=== PATIENT | male | born 1955 | race Caucasian/White ===

== ENCOUNTER 2019-05-19 09:10 | Emergency (ER) | payer BC ==
[2019-05-19] MEDS: Famotidine 20 MG/2 ML SDV IVPUSH ONE (09:41)
[2019-05-19] MEDS: Sodium Chloride 0.9% 10 ML Syringe FLUSH PRN (09:42)
[2019-05-19 10:00] LABS: CHLORIDE,CL 100 mmol/L (98-107); SODIUM,NA 136 mmol/L (136-145)
--- NOTE | 2019-05-19 10:25 | EDM.PDOC ---
ED HPI GENERAL MEDICAL PROBLEM - General Chief Complaint: General Stated Complaint: SOB, Urinary Frequency Time Seen by Provider: 05/19/19 09:10 Source of Information: Reports: Patient, Old Records ([facility] chart/EMR), Other ([facility] EMR; [facility] EMR previously reviewed on 01/17/14.) History Limitations: Reports: No Limitations - History of Present Illness INITIAL COMMENTS - FREE TEXT/NARRATIVE: The patient drove himself to the emergency room via private automobile for evaluation of a 5 day history of increased urinary frequency without gross hematuria, colic, urinary retention, etc. Note the patient does have a long history of atrial fibrillation with current Eliquis therapy with increasing nonspecific dyspnea during the last 3 weeks. Patient does state that he normally has more dyspnea when he is tachycardic, however has not experienced any known tachycardia, etc.. The patient denies any chest pain/pressure, heart flutter, dizziness, orthostasis, orthopnea, diaphoresis, paresthesias, recent decreased exercise tolerance, or any other anginal-type symptoms. No recent history of abdominal pain, heartburn, nausea, diarrhea, melena, gross hematochezia, or any food intolerance, including fatty foods, etc.. The patient also denies any recent fever, cough, wheezing, etc.. The patient is a somewhat poor historian. Onset: Gradual, Other (As above) Duration: Getting Worse (Dysuria), Intermittent (Dyspnea and dysuria as above) Location: Reports: Other (No pain). Denies: Head, Face, Neck, Chest, Abdomen, Back, Upper Extremity, Left, Upper Extremity, Right, Radiates to Quality: Reports: Burning Severity: Moderate Improves with: Reports: None Worsens with: Reports: None Context: Reports: Other (As above). Denies: Sick Contact, Trauma Associated Symptoms: Denies: Confusion, Chest Pain, Cough, Diaphoresis, Fever/ Chills, Headaches, Loss of Appetite, Malaise, Nausea/Vomiting, Seizure, Shortness of Breath, Syncope, Weakness Treatments FRAME REPAIRER: Reports: Other (see below) (None) - Related Data Allergies Allergy/AdvReac Type Severity Reaction Status Date / Time atorvastatin calcium Allergy Liver Verified 05/19/19 09:44 [From Lipitor] Problems cetirizine Allergy Cannot Verified 05/19/19 09:44 Remember erythromycin base Allergy Swelling Verified 05/19/19 09:44 [Erythromycin Base] simvastatin [From Zocor] Allergy Liver Verified 05/19/19 09:44 Problems sulfamethoxazole Allergy Hives Verified 05/19/19 09:44 [From Bactrim] trimethoprim [From Bactrim] Allergy Hives Verified 05/19/19 09:44 Home Meds: Home Meds Allopurinol [Zyloprim] 1 tab PO DAILY 05/19/19 [History] Apixaban [Eliquis] 1 tab PO BID 05/19/19 [History] Ezetimibe 1 tab PO DAILY 05/19/19 [History] Furosemide 1 tab PO DAILY 05/19/19 [History] LORazepam 1 tab PO BEDTIME PRN 05/19/19 [History] Lisinopril 1 tab PO DAILY 05/19/19 [History] Meloxicam 1 tab PO DAILY PRN 05/19/19 [History] Metoprolol Tartrate 1 tab PO DAILY 05/19/19 [History] Metoprolol Tartrate [Lopressor] 100 mg PO BEDTIME 05/19/19 [History] Omeprazole 40 mg PO BID 05/19/19 [History] amLODIPine Besylate [Amlodipine Besylate] 1 tab PO DAILY 05/19/19 [History] traMADol HCl [Tramadol HCl] 1 tab PO Q6H PRN 05/19/19 [History] Past Medical History HEENT History: Reports: Allergic Rhinitis, Cataract, Impaired Vision, Retinal Detachment, Other (See Below). Denies: Glaucoma, Hard of Hearing, Macular Degeneration Other HEENT History: He wears glasses. Right eye retinal detachment requiring surgery as below. Cardiovascular History: Reports: Afib, Arrhythmia, High Cholesterol, Hypertension, Pacemaker, Other (See Below) Other Cardiovascular History: Apparent electrocardioversion for his atrial fibrillation on 06/26/18 with previous heart attack ablation in 2011 as below. Cardiomegaly by chest x-ray. Moderate bilateral atrial enlargement by echocardiogram. Respiratory History: Reports: COPD, Intubation, Previous, Sleep Apnea, Other ( See Below). Denies: Intubation, Difficult Other Respiratory History: COPD by chest x-ray with no current treatment. Previous right rib fractures. Gastrointestinal History: Reports: Colon Polyp, Diverticulosis, GERD, Hiatal Hernia, Other (See Below) Other Gastrointestinal History: Umbilical hernia. Genitourinary History: Denies: BPH Musculoskeletal History: Reports: Arthritis, Fracture, Gout, Osteoarthritis, Osteoporosis, Other (See Below) Other Musculoskeletal History: Congenital varus deformity of the foot. Plantar fasciitis. Right rib fractures as above. Second, fourth, and fifth right metatarsal fractures on 06/02/13. Psychiatric History: Reports: Addiction, Anxiety, Depression, Other (See Below) Other Psychiatric History: Chronic pain syndrome with Ultram use/pain contract Endocrine/Metabolic History: Reports: Obesity/BMI 30+, Osteopenia, Osteoporosis Hematologic History: Reports: Polycythemia - Infectious Disease History Infectious Disease History: Reports: Chicken Pox, Measles, Shingles (Left facial and eye zoster ophthalmicus on 07/25/16.) - Past Surgical History HEENT Surgical History: Reports: Cataract Surgery, Detached Retina, Eye Surgery , Other (See Below) Other HEENT Surgeries/Procedures: Detached retina repair. Right-sided cataract surgery on 02/13/13 with subsequent right eye YAG laser treatment of the posterior capsule on 09/20/13. Cardiovascular Surgical History: Reports: Cardiac Ablation, Pacer, Other (See Below) Other Cardiovascular Surgeries/Procedures: Cardiac ablation in about 2011. GI Surgical History: Reports: Appendectomy, Colonoscopy, EGD, Hernia, Inguinal, Other (See Below) Other GI Surgeries/Procedures: Last EGD and colonoscopy on 10/17/14 with no evidence of reoccurrence of his previous colonic polyps. Note previouss EGD on and 09/14/12. Previous colonoscopy on 04/10/09 and 09/14/12. Appendectomy on 09/19/67. Right inguinal hernia repair on 09/19/05 at about age 13. Musculoskeletal Surgical History: Reports: Arthroscopic Knee, Other (See Below) Other Musculoskeletal Surgeries/Procedures:: Right knee arthroscopic evaluation on 10/23/13. - Past Imaging History Past Imaging History: Reports: Cardiac Echo (06/05/18 with ejection fraction of 65% and findings as above.), Sleep Study (Date unknown) - History Comment History Comment: Complete History not possible with patient being a somewhat poor historian. Social & Family History - Family History Cardiac: Reports: CAD, Other (See Below) Other Cardiac Family History: Maternal uncle and brother with coronary artery disease Respiratory: Reports: COPD, Other (See Below) Other Respiratory Family Hisory: Father with COPD. Neurological: Reports: Parkinson's, Other (See Below) Other Neurological Family History: Paternal grandfather with diabetes mellitus. Endocrine/Metabolic: Reports: Diabetes, type II, Other (See Below) Other Endocrine/Metabolic Family History: Paternal grandfather with diabetes mellitus. - Tobacco Use Smoking Status *Q: Former Smoker Tobacco Use Within Last Twelve Months: No, Snuff/Dip Years of Tobacco use: 15 Packs/Tins Daily: 1 Packs/Tins Daily Comment: 1 can per day chewing tobacco between ages 29 and 44. - Living Situation & Occupation Living situation: Reports: Alone Occupation: Employed ([employer]) ED ROS GENERAL - Review of Systems Review Of Systems: ROS reveals no pertinent complaints other than HPI. ED EXAM, GENERAL - Physical Exam Exam: See Below Exam Limited By: No Limitations General Appearance: Alert, WD/WN, No Apparent Distress, Anxious (Mild) Eye Exam: Bilateral Eye: EOMI, Normal Inspection (He is wearing glasses, no nystagmus), PERRL Ears: Normal External Exam, Normal Canal, Hearing Grossly Normal, Normal TMs Nose: Normal Inspection, Normal Mucosa, No Blood Throat/Mouth: Normal Inspection, Normal Lips, Normal Teeth, Normal Gums, Normal Oropharynx, Normal Voice, No Airway Compromise. No: Dysphagia, Perioral Cyanosis Head: Atraumatic, Normocephalic. No: Facial Swelling, Facial Tenderness, Sinus Tenderness Neck: Normal Inspection, Supple, Non-Tender, Full Range of Motion. No: Lymphadenopathy (L), Lymphadenopathy (R), Thyromegaly Respiratory/Chest: No Respiratory Distress, Lungs Clear, Normal Breath Sounds, No Accessory Muscle Use, Chest Non-Tender. No: Rales, Pleural Rub, Retractions Cardiovascular: Normal Peripheral Pulses, Regular Rate, Rhythm, No Edema, No Gallop, No JVD, No Murmur, No Rub, Other (Note paced rhythm). No: Gallop/S3, Gallop/S4, Extra Beats, Friction Rub Peripheral Pulses: 2+: Brachial (L), Brachial (R), Dorsalis Pedis (L), Dorsalis Pedis (R) GI/Abdominal: Normal Bowel Sounds, Soft, Non-Tender, No Organomegaly, No Distention, No Abnormal Bruit, No Mass, Hernia (1 cm nonincarcerated umbilical hernia), Other (Obese). No: Guarding (Male) Exam: Deferred Rectal (Males) Exam: Deferred Back Exam: Normal Inspection, Full Range of Motion. No: CVA Tenderness (L), CVA Tenderness (R), Muscle Spasm Extremities: Normal Inspection, Normal Range of Motion, Non-Tender, No Pedal Edema, Normal Capillary Refill. No: Livan's Sign Neurological: Alert, Oriented, CN II-XII Intact, Normal Cognition, Normal Gait, Normal Reflexes (Negative Babinski's), No Motor/Sensory Deficits Psychiatric: Anxious (Mild). No: Depressed Mood Skin Exam: Warm, Dry, Intact, Normal Color, No Rash. No: Diaphoretic, Wound/ Incision Lymphatic: No Adenopathy EKG INTERPRETATION EKG Date: 05/19/19 Time: 09:27 Rhythm: A-Fib (With 100% paced rhythm.) Rate (Beats/Min): 70 Comparison: No Change (Last EKG on 06/23/18.) EKG Interpretation Comments: 1. 100% paced rhythm with baseline atrial fibrillation. 2. No acute ischemic changes Course - Vital Signs Last Recorded V/S: Last Vital Signs Temp 36.4 C 05/19/19 09:10 Pulse 70 05/19/19 09:10 Resp 18 05/19/19 09:10 BP 150/84 H 05/19/19 09:10 Pulse Ox 92 L 05/19/19 09:10 Vital Signs - 24 hr 05/19/19 09:10 Temperature [ 36.4 C Temporal] Pulse, 70 Peripheral [ Pulse Oximetry] Respiratory 18 Rate Blood Pressure 150/84 H [Right Upper Arm] O2 Sat by Pulse 92 L Oximetry - Orders/Labs/Meds Orders: Active Orders 24 hr Category Date Time Status Cardiac Monitoring [RC] . DIRECTED Care 05/19/19 09:17 Active EKG Documentation Completion [RC] ASDIRECTED Care 05/19/19 09:17 Active Oxygen Therapy, ED [RC] PRN Care 05/19/19 09:17 Active Peripheral IV Care [RC] . DIRECTED Care 05/19/19 09:17 Active Pulse Oximetry [RC] CONTINUOUS Care 05/19/19 09:17 Active Up With Assistance [RC] PFP Care 05/19/19 09:17 Active Vital Signs [RC] PFP Care 05/19/19 09:17 Active Nothing per Oral Now Diet [DIET] Diet 05/19/19 Breakfast Active Chest 1V Frontal [CR] Stat Exams 05/19/19 09:17 Taken CULTURE URINE [RM] Routine Lab 05/19/19 09:59 Ordered Sodium Chloride 0.9% [Saline Flush] Med 05/19/19 09:17 Active 10 ml FLUSH ASDIRECTED PRN Obtain Past Medical Record [OM.PC] Urgent Oth 05/19/19 09:17 Active Peripheral IV Insertion Adult [OM.PC] Stat Oth 05/19/19 09:17 Ordered Resuscitation Status Stat Resus Stat 05/19/19 09:17 Ordered Medication Orders Sodium Chloride (Saline Flush) 10 ml FLUSH ASDIRECTED PRN PRN Reason: Keep Vein Open Last Admin: 05/19/19 09:42 Dose: 10 ml Labs: Laboratory Tests 05/19/19 05/19/19 05/19/19 Range/Units 09:20 09:20 09:20 WBC 6.9 (4.0-10.2) K/uL RBC 6.03 H (4.33-5.41) M/uL Hgb 18.1 H* (13.1-16.8) g/dL Hct 53.6 H (39.0-49.0) % MCV 88.9 (84.0-98.0) fL MCH 30.0 (28.2-33.3) pg MCHC 33.8 (31.7-36.0) g/dL RDW 15.1 H (11.2-14.1) % Plt Count 151 D (150-350) K/uL Neut % (Auto) 57.6 (45.0-80.0) % Lymph % (Auto) 31.2 (10.0-50.0) % Valley % (Auto) 7.7 (2.0-14.0) % Eos % (Auto) 2.6 (0.0-5.0) % Baso % (Auto) 0.9 (0.0-2.0) % Neut # (Auto) 3.94 (1.40-7.00) K/uL Lymph # (Auto) 2.14 (0.50-3.50) K/uL Valley # (Auto) 0.53 (0.00-1.00) K/uL Eos # (Auto) 0.18 (0.00-0.50) K/uL Baso # (Auto) 0.06 (0.00-0.20) K/uL PT 11.4 (9.5-12.0) SEC INR 1.1 APTT 33.9 H (21.0-31.3) SEC D-Dimer, Quantitative < 100 (0-400) ng/mL Sodium (136-145) mmol/L Potassium (3.5-5.1) mmol/L Chloride (98-107) mmol/L Carbon Dioxide (21.0-32.0) mmol/L BUN (7-18) mg/dL Creatinine (0.51-1.17) mg/dL Est Cr Clr Drug Dosing mL/min Estimated GFR (MDRD) mL/min Glucose (74-106) mg/dL Lactic Acid (0.4-2.0) mmol/L Uric Acid (2.6-7.2) mg/dL Calcium (8.5-10.1) mg/dL Magnesium (1.8-2.4) mg/dL Total Bilirubin (0.2-1.0) mg/dL AST (15-37) U/L ALT (12-78) U/L Alkaline Phosphatase (46-116) IU/L Creatine Kinase (26-308) U/L Creatine Kinase Index (0.0-2.5) % CK-MB (CK-2) (0.00-3.60) ng/mL Troponin I (0.000-0.056) ng/mL NT-Pro-B Natriuret Pep (0-125) pg/mL Total Protein (6.4-8.2) g/dL Albumin (3.4-5.0) g/dL TSH, Ultra Sensitive (0.358-3.740) mIU/mL Specimen Type Urine Color Urine Appearance Urine pH (5.0-9.0) Ur Specific [place] (1.005-1.030) Urine Protein (NEGATIVE) mg/dL Urine Glucose (UA) (NEGATIVE) mg/dL Urine Ketones (NEGATIVE) mg/dL Urine Occult Blood (NEGATIVE) Urine Nitrite (NEGATIVE) Urine Bilirubin (NEGATIVE) Urine Urobilinogen (0.2-1.0) E.U./dL Ur Leukocyte Esterase (NEGATIVE) Urine RBC /HPF Urine WBC /HPF Ur Epithelial Cells /LPF Urine Bacteria (NONE TO FEW) /HPF Hyaline Casts (NEGATIVE) /LPF 05/19/19 05/19/19 05/19/19 Range/Units 09:20 09:20 10:00 WBC (4.0-10.2) K/uL RBC (4.33-5.41) M/uL Hgb (13.1-16.8) g/dL Hct (39.0-49.0) % MCV (84.0-98.0) fL MCH (28.2-33.3) pg MCHC (31.7-36.0) g/dL RDW (11.2-14.1) % Plt Count (150-350) K/uL Neut % (Auto) (45.0-80.0) % Lymph % (Auto) (10.0-50.0) % Valley % (Auto) (2.0-14.0) % Eos % (Auto) (0.0-5.0) % Baso % (Auto) (0.0-2.0) % Neut # (Auto) (1.40-7.00) K/uL Lymph # (Auto) (0.50-3.50) K/uL Valley # (Auto) (0.00-1.00) K/uL Eos # (Auto) (0.00-0.50) K/uL Baso # (Auto) (0.00-0.20) K/uL PT (9.5-12.0) SEC INR APTT (21.0-31.3) SEC D-Dimer, Quantitative (0-400) ng/mL Sodium 136 (136-145) mmol/L Potassium 4.3 (3.5-5.1) mmol/L Chloride 100 (98-107) mmol/L Carbon Dioxide 27.2 (21.0-32.0) mmol/L BUN 17 (7-18) mg/dL Creatinine 0.81 (0.51-1.17) mg/dL Est Cr Clr Drug Dosing 79.09 mL/min Estimated GFR (MDRD) > 60 mL/min Glucose 160 H (74-106) mg/dL Lactic Acid 1.2 (0.4-2.0) mmol/L Uric Acid 6.1 (2.6-7.2) mg/dL Calcium 8.7 (8.5-10.1) mg/dL Magnesium 2.1 (1.8-2.4) mg/dL Total Bilirubin 0.7 (0.2-1.0) mg/dL AST 27 (15-37) U/L ALT 47 (12-78) U/L Alkaline Phosphatase 131 H (46-116) IU/L Creatine Kinase 59 (26-308) U/L Creatine Kinase Index 2.0 (0.0-2.5) % CK-MB (CK-2) 1.20 (0.00-3.60) ng/mL Troponin I 0.000 (0.000-0.056) ng/mL NT-Pro-B Natriuret Pep 548 H (0-125) pg/mL Total Protein 7.1 (6.4-8.2) g/dL Albumin 3.7 (3.4-5.0) g/dL TSH, Ultra Sensitive 2.316 (0.358-3.740) mIU/mL Specimen Type Urinvoid Urine Color Yellow Urine Appearance Clear Urine pH 6.5 (5.0-9.0) Ur Specific [place] 1.020 (1.005-1.030) Urine Protein 30 H (NEGATIVE) mg/dL Urine Glucose (UA) Negative (NEGATIVE) mg/dL Urine Ketones Negative (NEGATIVE) mg/dL Urine Occult Blood Negative (NEGATIVE) Urine Nitrite Negative (NEGATIVE) Urine Bilirubin Negative (NEGATIVE) Urine Urobilinogen 0.2 (0.2-1.0) E.U./dL Ur Leukocyte Esterase Negative (NEGATIVE) Urine RBC Not seen /HPF Urine WBC Not seen /HPF Ur Epithelial Cells Rare /LPF Urine Bacteria Not seen (NONE TO FEW) /HPF Hyaline Casts Occasional H (NEGATIVE) /LPF Urine specimen set up for culture and sensitivity. Meds: Medications Generic Name Dose Route Start Last Admin Trade Name Freq PRN Reason Stop Dose Admin Sodium Chloride 10 ml 05/19/19 09:17 05/19/19 09:42 Saline Flush FLUSH 10 ml ASDIRECTED PRN Administration Keep Vein Open Discontinued Medications Generic Name Dose Route Start Last Admin Trade Name Freq PRN Reason Stop Dose Admin Famotidine 40 mg 05/19/19 09:17 05/19/19 09:41 Pepcid IVPUSH 05/19/19 09:18 40 mg ONETIME ONE Administration Furosemide 60 mg 05/19/19 10:35 05/19/19 10:50 Lasix IVPUSH 05/19/19 10:36 60 mg NOW ONE Administration Potassium Chloride 20 meq 05/19/19 10:37 05/19/19 10:49 Klor-Con M20 PO 05/19/19 10:38 20 meq ONETIME ONE Administration - Radiology Interpretation Free Text/Narrative:: Form Worker shows 100% paced rhythm with heart rate of 70 with no ectopy or arrhythmia Chest x-ray, portable, shows mild to moderate COPD and pulmonary fibrotic changes with mild cardiomegaly and mild centralized CHF. Pacemaker noted. No pneumothorax or significant pulmonary infiltrates. Departure - Departure Time of Disposition: 23:11 Disposition: Home, Self-Care 01 Clinical Impression: Afib, Atrial fibrillation, HTN, Benign hypertension, Osteoarthritis, Peptic reflux disease, Mixed anxiety and depressive disorder, Hyperglycemia, Polycythemia Hyperlipidemia Qualifiers: Hyperlipidemia type: mixed hyperlipidemia Qualified Code(s): E78.2 - Mixed hyperlipidemia COPD (chronic obstructive pulmonary disease) Qualifiers: COPD type: emphysema Emphysema type: panlobular Qualified Code(s): J43.1 - Panlobular emphysema CHF (congestive heart failure) Qualifiers: Heart failure type: unspecified Heart failure chronicity: acute Qualified Code( s): I50.9 - Heart failure, unspecified BPH (benign prostatic hyperplasia) Qualifiers: Lower urinary tract symptom presence: symptoms present Lower urinary tract symptom detail: urinary frequency Qualified Code(s): N40.1 - Benign prostatic hyperplasia with lower urinary tract symptoms - Discharge Information *PRESCRIPTION DRUG MONITORING PROGRAM REVIEWED*: Not Applicable *COPY OF PRESCRIPTION DRUG MONITORING REPORT IN PATIENT MONICA: Not Applicable Instructions: Heart-Healthy Eating Plan, [id number], Benign Prostatic Hyperplasia, Heart Failure, [id number], Preventing Heart Failure, Diabetes Mellitus and Nutrition, Adult Referrals: Solomon Smith PA [Primary Care Provider] - Forms: ED Department Discharge Additional Instructions: 1. Followup with your regular provider in 10 days as directed for reevaluation and recommended repeat CBC, BNP, and basic metabolic panel with additional glycosylated hemoglobin recommended. Discuss possible increase of your Lasix therapy and initiation of low-dose potassium chloride at that time depending on the above blood work results and your symptoms. Also discuss possible outpatient phlebotomy secondary to your persistent polycythemia/elevated hemoglobin Bring these discharge instructions with you to that visit. 2. Keep other arrhythmia appointment at [facility] in [place] as already scheduled on 08/24. 3. Weight loss in moderation are advisable and dietary changes as per provided information, including 1500-calorie ADA, heart healthy diet. with recommended 2000ml/2 liter . 4. Discuss possible echocardiogram with your regular provider and/or applied mathematician, if this has not been recently conducted 5. Immediately after this visit verify that your cellular telephone's voicemail has been activated and is empty. Also verify that your home telephone 's answering machine is operating properly and has space to receive messages. Note that it is sometimes necessary for us to be able to contact you at a later date to discuss your medical care. 6. Please remember that we are ALWAYS here for you and want to answer any questions you may have. Feel free to call the hospital any time and we call you back JUAN A. - Problem List & Annotations (1) Afib, Atrial fibrillation SNOMED Code(s): 07603481 Code(s): I48.91 - UNSPECIFIED ATRIAL FIBRILLATION Status: Chronic Priority: Medium Current Visit: Yes Annotation/Comment:: Note recurrence of his atrial fibrillation with heart rate under good control during extended emergency room evaluation with continued 100% paced rhythm and no evidence of tachycardia, other arrhythmia, etc.. Note current Eliquis therapy and recent cardiac electrocardioversion at [facility] in June 2018 as above. (2) CHF (congestive heart failure) SNOMED Code(s): 14645002 Code(s): I50.9 - HEART FAILURE, UNSPECIFIED Status: Acute Priority: High Current Visit: Yes Onset Date: 05/19/19 Annotation/Comment:: Mild CHF based on today's chest x-ray and BNP elevation. IV Lasix with additional oral potassium chloride given as above. Otherwise no further change in medical therapy for now although this will be discussed further with his applied mathematician and/or Mariama provider as per discharge instructions. ADA, heart healthy, and fluid restricted diet discussed with patient. [facility] EMR records were reviewed after the patient left the facility with recent echocardiogram on 06/15/18, although this still may need to be repeated secondary to his new CHF and history of recurrent refractory atrial fibrillation. No chest pain or anginal type symptoms. Note current pacemaker. Qualifiers: Heart failure type: unspecified Heart failure chronicity: acute Qualified Code(s): I50.9 - Heart failure, unspecified (3) BPH (benign prostatic hyperplasia) SNOMED Code(s): 164147740 Code(s): N40.0 - BENIGN PROSTATIC HYPERPLASIA WITHOUT LOWER URINRY TRACT SYMP Status: Acute Priority: High Current Visit: Yes Onset Date: ~ Annotation/Comment:: Suspect dysuria secondary to his BPH with no workup to this point. Consider further medical therapy, workup, etc. depending on his clinical course. No evidence of UTI based on today's UA, however specimen set up for culture and sensitivity. Treatment strategies discussed extensively with the patient today. Qualifiers: Lower urinary tract symptom presence: symptoms present Lower urinary tract symptom detail: urinary frequency Qualified Code(s): N40.1 - Benign prostatic hyperplasia with lower urinary tract symptoms; R35.0 - Frequency of micturition (4) Polycythemia SNOMED Code(s): 153746832 Code(s): D75.1 - SECONDARY POLYCYTHEMIA Status: Chronic Priority: Medium Current Visit: Yes Annotation/Comment:: Continue to observe closely by his regular provider with patient probably benefiting from a phlebotomy. Note current Eliquis therapy. (5) Osteoarthritis SNOMED Code(s): 246356276 Code(s): M19.90 - UNSPECIFIED OSTEOARTHRITIS, UNSPECIFIED SITE Status: Chronic Priority: Medium Current Visit: Yes Annotation/Comment:: Stable by history with additional history of hyperuricemia with no current Type symptoms. Note chronic Ultram therapy/pain contract. (6) COPD (chronic obstructive pulmonary disease) SNOMED Code(s): 20431091 Code(s): J44.9 - CHRONIC OBSTRUCTIVE PULMONARY DISEASE, UNSPECIFIED Status : Chronic Priority: Medium Current Visit: Yes Annotation/Comment:: No fever or bronchitic type symptoms. No current medical therapy. Consider PFTs. Qualifiers: COPD type: emphysema Emphysema type: panlobular Qualified Code(s): J43.1 - Panlobular emphysema (7) Hyperglycemia SNOMED Code(s): 78869981 Code(s): R73.9 - HYPERGLYCEMIA, UNSPECIFIED Status: Acute Priority: Medium Current Visit: Yes Onset Date: 05/19/19 Annotation/Comment:: No previously known diabetes mellitus. Weight loss in moderation advised with dietary information provided as above. Glycosylated hemoglobin recommended at follow-up. (8) Mixed anxiety and depressive disorder SNOMED Code(s): 217045380 Code(s): F41.8 - OTHER SPECIFIED ANXIETY DISORDERS Status: Chronic Priority: Medium Current Visit: Yes Annotation/Comment:: Stable by history with current medical therapy although patient somewhat anxious today. Continue to observe closely by his regular provider. No significant depression at this time. Note chronic Ultram use. (9) Peptic reflux disease SNOMED Code(s): 198120150 Code(s): K21.9 - GASTRO-ESOPHAGEAL REFLUX DISEASE WITHOUT ESOPHAGITIS Status: Chronic Priority: Medium Current Visit: Yes Annotation/Comment:: Stable with current medical therapy (10) HTN, Benign hypertension SNOMED Code(s): 41689558 Code(s): I10 - ESSENTIAL (PRIMARY) HYPERTENSION Status: Chronic Priority : Medium Current Visit: Yes Annotation/Comment:: Blood pressures under good control in the emergency room. (11) Hyperlipidemia SNOMED Code(s): 78184581 Code(s): E78.5 - HYPERLIPIDEMIA, UNSPECIFIED Status: Chronic Priority: Medium Current Visit: Yes Annotation/Comment:: Currently under therapy. Weight loss in moderation advised with dietary information provided as above. Qualifiers: Hyperlipidemia type: mixed hyperlipidemia Qualified Code(s): E78.2 - Mixed hyperlipidemia - Problem List Review Problem List Initiated/Reviewed/Updated: Yes - My Orders Last 24 Hours: My Active Orders 05/19/19 09:17 Cardiac Monitoring [RC] . DIRECTED EKG Documentation Completion [RC] ASDIRECTED Oxygen Therapy, ED [RC] PRN Peripheral IV Care [RC] . DIRECTED Pulse Oximetry [RC] CONTINUOUS Up With Assistance [RC] PFP Vital Signs [RC] PFP Chest 1V Frontal [CR] Stat Sodium Chloride 0.9% [Saline Flush] 10 ml FLUSH ASDIRECTED PRN Obtain Past Medical Record [OM.PC] Urgent Peripheral IV Insertion Adult [OM.PC] Stat Resuscitation Status Stat 05/19/19 09:59 CULTURE URINE [RM] Routine 05/19/19 Breakfast Nothing per Oral Now Diet [DIET] - Assessment/Plan Last 24 Hours: My Active Orders 05/19/19 09:17 Cardiac Monitoring [RC] . DIRECTED EKG Documentation Completion [RC] ASDIRECTED Oxygen Therapy, ED [RC] PRN Peripheral IV Care [RC] . DIRECTED Pulse Oximetry [RC] CONTINUOUS Up With Assistance [RC] PFP Vital Signs [RC] PFP Chest 1V Frontal [CR] Stat Sodium Chloride 0.9% [Saline Flush] 10 ml FLUSH ASDIRECTED PRN Obtain Past Medical Record [OM.PC] Urgent Peripheral IV Insertion Adult [OM.PC] Stat Resuscitation Status Stat 05/19/19 09:59 CULTURE URINE [RM] Routine 05/19/19 Breakfast Nothing per Oral Now Diet [DIET] Assessment:: As above Plan: As above. Extensive precautions were given to the patient, who is in agreement with the treatment plan. See Patient Instructions for further treatment and plan.
[2019-05-19] MEDS: Potassium Chloride 20 MEQ Tab.ER PO ONE (10:49)
[2019-05-19] MEDS: Furosemide 40 MG/4 ML VIAL IVPUSH ONE (10:50)
[2019-05-19 16:15] VITALS: BP 131/77
== END 2019-05-19 11:10 | disposition home or self-care (01) ==
LOC: LL.ED 09:10
DX: I11.0 Hypertensive heart disease with heart failure (principal); I50.9 Heart failure, unspecified; I48.91 Unspecified atrial fibrillation; J43.1 Panlobular emphysema; N40.1 Benign prostatic hyperplasia with lower urinary tract symptoms; K21.9 Gastro-esophageal reflux disease without esophagitis; R73.9 Hyperglycemia, unspecified; D75.1 Secondary polycythemia; E78.2 Mixed hyperlipidemia; F41.8 Other specified anxiety disorders; E78.00 Pure hypercholesterolemia, unspecified; M19.90 Unspecified osteoarthritis, unspecified site; J44.9 Chronic obstructive pulmonary disease, unspecified; Z88.8 Allergy status to other drugs, medicaments and biological substances; Z88.1 Allergy status to other antibiotic agents; Z79.899 Other long term (current) drug therapy; Z79.01 Long term (current) use of anticoagulants; Z95.0 Presence of cardiac pacemaker; Z87.891 Personal history of nicotine dependence
CPT/HCPCS: 36415; 71045; 80053; 81001; 82550; 82553; 83605; 83735; 83880; 84443; 84484; 84550; 85025; 85379; 85610; 85730; 87086; 93005; 96374; 96375; 99285; A9270; J1940; J3490

== ENCOUNTER 2020-09-04 08:54 | Day surgery (SDC) | payer BC ==
[2020-09-04] MEDS ORDERED: Lactated Ringers 1,000 ML IV SCH (09:00)
[2020-09-04] MEDS ORDERED: Sodium Chloride 0.9% 10 ML Syringe FLUSH PRN (09:00)
[2020-09-04] MEDS ORDERED: Propofol 200 MG/20 ML SDV ONE ×2 (10:33→10:34)
[2020-09-04] MEDS ORDERED: Midazolam 1 MG/ML 2 ML SDV ONE ×2 (10:33→10:34)
--- NOTE | 2020-09-04 10:37 | PCM.PN ---
- General Info Date of Service: 09/04/20 - Review of Systems Systems Review Comment:: 65-year-old male with known history of GERD recently identified to have a positive fit test. He is referred for EGD and colonoscopy. He does state that he has had colon polyps in the past and has been on long-term PPI agents. His recent history and physical is reviewed and no significant changes are noted. I have discussed the proposed EGD and colonoscopy with the patient. His questions were answered and he agrees to proceed. Risks such as but not limited to bleeding and GI injury reviewed. - Patient Data Vitals - Most Recent: Last Vital Signs Temp 97.9 F 09/04/20 09:28 Pulse 83 09/04/20 09:28 Resp 20 09/04/20 09:28 BP 151/81 H 09/04/20 09:28 Pulse Ox 99 09/04/20 09:28 Weight - Most Recent: 117.48 kg Med Orders - Current: Current Medications Lactated Ringer's (Ringers, Lactated) 1,000 mls @ 125 mls/hr IV ASDIRECTED RILEY Last Admin: 09/04/20 09:37 Dose: 125 mls/hr Documented by: Sodium Chloride (Saline Flush) 10 ml FLUSH ASDIRECTED PRN PRN Reason: Keep Vein Open Sepsis Event Note - Focused Exam Vital Signs: Vital Signs Temp Pulse Resp BP Pulse Ox 09/04/20 09:28 97.9 F 83 20 151/81 H 99 - Problem List Review Problem List Initiated/Reviewed/Updated: Yes - My Orders Last 24 Hours: My Active Orders 09/04/20 09:00 Patient Status [ADT] Routine Peripheral IV Care [RC] . DIRECTED Verify Patient Consent Obtain [RC] ASDIRECTED Lactated Ringers [Ringers, Lactated] 1,000 ml IV ASDIRECTED Sodium Chloride 0.9% [Saline Flush] 10 ml FLUSH ASDIRECTED PRN Peripheral IV Insertion Adult [OM.PC] Routine - Assessment Assessment:: GERD Positive fit test - Plan Plan:: EGD and colonoscopy
--- NOTE | 2020-09-04 11:41 | PCM.OPNOTE ---
- General Post-Op/Procedure Note Date of Surgery/Procedure: 09/04/20 Operative Procedure(s): EGD with Biopsy and Colonoscopy with Polypectomy Findings: Moderate sized hiatal hernia with esophagitis near the GE junction Small gastric polyps Moderate Sigmoid Diverticulosis with mild inflammation 2 polyps in Sigmoid colon Pre Op Diagnosis: GERD. + FIT Test Post-Op Diagnosis: Hiatal Hernia. Reflux Esophagitis. Gastric Polyps. Colon Polyps. Sigmoid Diverticulosis Anesthesia Technique: [facility] [place] Primary Surgeon: Shabbir Thomas Pathology: Biopsies of Gastric antrum, polyps and distal esophagus, colon polyps EBL in mLs: 4 Complications: None Condition: Good
--- NOTE | 2020-09-04 12:40 | OR ---
Date of Procedure: 09/04/2020 PREOPERATIVE DIAGNOSIS: Gastroesophageal reflux disease and positive FIT test. POSTOPERATIVE DIAGNOSES: 1. Hiatal hernia. 2. Reflux esophagitis. 3. Gastric polyps. 4. Colon polyps. 5. Sigmoid diverticulosis. OPERATION PERFORMED: Esophagogastroduodenoscopy with biopsy and colonoscopy with polypectomy. INDICATIONS FOR SURGERY: This 65-year-old male has a longstanding history of GERD symptoms and has been on PPI agents for several years. He has recently noted to have a positive FIT test. FINDINGS: On upper endoscopy, the patient does have a moderate-sized hiatal hernia of approximately 3 cm in length. Just above the Z-line at this hiatal hernia, there is a small area of reflux esophagitis changes extending for approximately 1 to 2 cm up into the distal esophagus. No mass or stricture is seen. In the stomach, multiple small polyps were noted. These vary in size from 4 to 8 mm and are benign in appearance. The remainder of the stomach appears normal as does the duodenum. On colonoscopy, 2 polyps were noted in the sigmoid colon, one at 25 cm level and one at the 18 cm level. Both of these are sessile in configuration and approximately 6 mm in size. There is also moderate- to-extensive sigmoid diverticulosis with some areas of mild hyperemia suggestive of mild inflammation, but no exudate or signs of severe infection. The remainder of the colon and terminal ileum appear normal. DESCRIPTION OF PROCEDURE: The patient was taken to the operating room. He was given intravenous sedation and his throat was topically anesthetized. The Olympus gastroscope was advanced through a mouth guard into the oral cavity. Under direct visualization, the scope was then carefully advanced down into the esophagus and through the esophagus, stomach, and into the duodenum, where examination to the fourth portion was performed. The duodenum was carefully examined and then the scope was withdrawn into the stomach where full examination including retroflexed examination of the fundus was performed. Random biopsies of the antrum were taken to rule out H. pylori. Also, biopsies of multiple gastric polyps were taken. The GE junction and distal esophagus were carefully examined and biopsies of the distal esophagus were taken to rule out Paul's esophagus. The examination was completed as the scope was withdrawn and attention was turned to colonoscopy. Digital rectal exam shows no rectal masses. The Olympus colonoscope was inserted into the rectum. Retroflexed examination of the rectal canal was performed. The scope was then carefully advanced under direct visualization through the entire length of the colon until the cecum was reached. Cecal acquisition was confirmed by noting the normal internal cecal anatomy including the appendiceal orifice and the ileocecal valve. The ileocecal valve was cannulated and the terminal ileum was examined and appeared normal. The scope was then slowly withdrawn sequentially re-examining the colonic segments until the entire colon and rectum had been fully examined. During the examination, the above-described polyps were identified and both of these polyps were removed grossly in their entirety with multiple bites of the biopsy forceps. After the examination had been completed, the scope was removed and the patient was taken from the operating room in satisfactory condition. ESTIMATED BLOOD LOSS: 4 mL. COMPLICATIONS: None. PROGNOSIS: Good. KYLE Thomas MD /[id number]
[2020-09-04 15:19] VITALS: BP 138/71; PULSE 72
== END 2020-09-04 12:54 | disposition home or self-care (01) ==
LOC: LL.SDS 08:54
PROVIDERS: ATTEND Surgery
DX: D12.5 Benign neoplasm of sigmoid colon (principal); K21.00 Gastro-esophageal reflux disease with esophagitis, without bleeding; K44.9 Diaphragmatic hernia without obstruction or gangrene; K57.30 Diverticulosis of large intestine without perforation or abscess without bleeding; K31.7 Polyp of stomach and duodenum; K31.89 Other diseases of stomach and duodenum; I10 Essential (primary) hypertension; I48.91 Unspecified atrial fibrillation; E78.5 Hyperlipidemia, unspecified; G47.30 Sleep apnea, unspecified; Z01.812 Encounter for preprocedural laboratory examination; Z20.828 Contact with and (suspected) exposure to other viral communicable diseases; Z90.49 Acquired absence of other specified parts of digestive tract; Z98.890 Other specified postprocedural states; Z79.899 Other long term (current) drug therapy; Z95.0 Presence of cardiac pacemaker; Z88.8 Allergy status to other drugs, medicaments and biological substances; Z88.1 Allergy status to other antibiotic agents; Z87.891 Personal history of nicotine dependence
CPT/HCPCS: 00813; J2250; J2704; J7120; U0002

== ENCOUNTER 2021-09-03 08:08 | Day surgery (SDC) | payer BC ==
[2021-09-03] MEDS ORDERED: Lactated Ringers 1,000 ML IV SCH (08:30)
[2021-09-03] MEDS ORDERED: Sodium Chloride 0.9% 10 ML Syringe FLUSH PRN (08:30)
[2021-09-03] MEDS ORDERED: Propofol 200 MG/20 ML SDV ONE ×2 (08:37→09:42)
[2021-09-03] MEDS ORDERED: Midazolam 1 MG/ML 2 ML SDV ONE ×2 (08:37→09:42)
[2021-09-03] MEDS ORDERED: Lidocaine 2% 5 ML SDV ONE (09:42)
[2021-09-03] MEDS ORDERED: Glycopyrrolate 0.2 MG/ML SDV ONE (09:42)
--- NOTE | 2021-09-03 09:44 | PCM.PN ---
- General Info Date of Service: 09/03/21 - Review of Systems Systems Review Comment:: 66-year-old male with history of Paul's esophagus here for surveillance upper endoscopy. He is medically stable to proceed today. His recent history and physical is reviewed and no significant changes are noted. Patient is aware of the proposed procedure including risks and this is carefully discussed with him again. He agrees to proceed. - Patient Data Vitals - Most Recent: Last Vital Signs Temp 97.7 F 09/03/21 09:26 Pulse 72 09/03/21 09:26 Resp 72 H 09/03/21 09:26 BP 145/77 H 09/03/21 09:26 Pulse Ox 18 L 09/03/21 09:26 Weight - Most Recent: 112.945 kg Med Orders - Current: Current Medications Lactated Ringer's (Ringers, Lactated) 1,000 mls @ 125 mls/hr IV ASDIRECTED RILEY Last Admin: 09/03/21 09:19 Dose: 125 mls/hr Documented by: Sodium Chloride (Sodium Chloride 0.9% 10 Ml Syringe) 10 ml FLUSH ASDIRECTED PRN PRN Reason: Keep Vein Open Discontinued Medications Midazolam HCl (Midazolam 1 Mg/Ml 2 Ml Sdv) Confirm Administered Dose 2 mg .ROUTE .STK-MED ONE Stop: 09/03/21 08:38 Propofol (Propofol 200 Mg/20 Ml Sdv) Confirm Administered Dose 200 mg .ROUTE .STK-MED ONE Stop: 09/03/21 08:38 Sepsis Event Note - Focused Exam Vital Signs: Vital Signs Temp Pulse Resp BP Pulse Ox 09/03/21 09:26 97.7 F 72 72 H 145/77 H 18 L - Problem List Review Problem List Initiated/Reviewed/Updated: Yes - My Orders Last 24 Hours: My Active Orders 09/03/21 08:30 Patient Status [ADT] Routine Peripheral IV Care [RC] . DIRECTED Verify Patient Consent Obtain [RC] ASDIRECTED Lactated Ringers [Ringers, Lactated] 1,000 ml IV ASDIRECTED Sodium Chloride 0.9% [Saline Flush] 10 ml FLUSH ASDIRECTED PRN Peripheral IV Insertion Adult [OM.PC] Routine - Assessment Assessment:: Paul's esophagus - Plan Plan:: EGD
--- NOTE | 2021-09-03 10:12 | PCM.OPNOTE ---
- General Post-Op/Procedure Note Date of Surgery/Procedure: 09/03/21 Operative Procedure(s): EGD with biopsy Findings: Benign-appearing short segment Paul's changes in the distal esophagus Exam otherwise normal Pre Op Diagnosis: History of Paul's esophagus Post-Op Diagnosis: Paul's esophagus Anesthesia Technique: MAC Primary Surgeon: Shabbir Thomas Pathology: Biopsies of distal esophagus EBL in mLs: 2 Complications: None Condition: Good
--- NOTE | 2021-09-03 14:02 | OR ---
Date of Procedure: 09/03/2021 PREOPERATIVE DIAGNOSIS: History of Paul's esophagus. POSTOPERATIVE DIAGNOSIS: Paul's esophagus. OPERATION PERFORMED: Esophagogastroduodenoscopy with biopsy. INDICATIONS FOR SURGERY: This 66-year-old male was diagnosed with Paul's esophagus one year ago. He comes today for surveillance upper endoscopy. FINDINGS: Patient's GE junction is approximately 40 cm from the incisors. There is extending proximal through this line for a distance of approximately 2 cm one tongue of Paul's esophagus. There were also some scattered small islands of this change noted in the distal esophagus as well. No stenosis or mass is identified. The remainder of the esophagus, stomach, and duodenum appeared normal. DESCRIPTION OF PROCEDURE: The patient was taken to the operating room. He was given intravenous sedation, and after, his throat was topically anesthetized, and with him in the left lateral decubitus position, the Olympus gastroscope was advanced through a mouth guard into the oral cavity. Under direct visualization, the scope was advanced down through the oropharynx and down through the esophagus, stomach, and into the duodenum, where examination to the 3rd portion was performed. After examining the duodenum, the scope was withdrawn back into the stomach where full examination including retroflexed examination of the fundus was carried out. The GE junction and distal esophagus were carefully examined. Random biopsies were taken at the GE junction and also in the distal esophagus to survey his Paul's esophagus. After this had been completed, the scope was removed, and with no sign of complication, the patient was taken from the operating room in satisfactory condition. ESTIMATED BLOOD LOSS: 2 mL. COMPLICATIONS: None. PROGNOSIS: Good. KYLE Thomas MD /[id number]
[2021-09-03 16:07] VITALS: BP 117/64; PULSE 67
== END 2021-09-03 11:14 | disposition home or self-care (01) ==
LOC: LL.SDS 08:08
PROVIDERS: ATTEND Surgery
DX: K21.00 Gastro-esophageal reflux disease with esophagitis, without bleeding (principal); K22.70 Barrett's esophagus without dysplasia; M10.9 Gout, unspecified; G47.30 Sleep apnea, unspecified; I11.0 Hypertensive heart disease with heart failure; I50.9 Heart failure, unspecified; E78.2 Mixed hyperlipidemia; E66.01 Morbid (severe) obesity due to excess calories; I48.19 Other persistent atrial fibrillation; J90 Pleural effusion, not elsewhere classified; Z68.41 Body mass index [BMI] 40.0-44.9, adult; Z86.010 Personal history of colon polyps; Z95.0 Presence of cardiac pacemaker; Z90.49 Acquired absence of other specified parts of digestive tract; Z98.890 Other specified postprocedural states; Z79.899 Other long term (current) drug therapy; Z88.8 Allergy status to other drugs, medicaments and biological substances; Z88.1 Allergy status to other antibiotic agents
CPT/HCPCS: 00731; 43239; J2250; J2704; J3490; J7120

== ENCOUNTER 2021-12-26 19:01 | Emergency (ER) | payer OTHER, BC ==
[~2021-12-26 19:01] MED LIST: EPINEPHrine 1:10,000 1 MG/10 ML Syringe ONE; Sodium Chloride 0.9% 10 ML Syringe ONE
[2021-12-26] MEDS ORDERED: Lactated Ringers 1,000 ML IV ONE (19:02)
[2021-12-26] MEDS ORDERED: Lactated Ringers 1,000 ML IV SCH (23:45)
[2021-12-26] MEDS ORDERED: Sodium Chloride 0.9% 10 ML Syringe FLUSH PRN (23:49)
== END 2021-12-26 19:39 | disposition expired ==
LOC: LL.ED 19:01
DX: S02.91XA Unspecified fracture of skull, initial encounter for closed fracture (principal); S42.302B Unspecified fracture of shaft of humerus, left arm, initial encounter for open fracture; R00.8 Other abnormalities of heart beat; I48.91 Unspecified atrial fibrillation; E78.00 Pure hypercholesterolemia, unspecified; I10 Essential (primary) hypertension; E66.9 Obesity, unspecified; Z68.30 Body mass index [BMI] 30.0-30.9, adult; Z95.0 Presence of cardiac pacemaker; Z88.1 Allergy status to other antibiotic agents; Z79.01 Long term (current) use of anticoagulants; Z79.899 Other long term (current) drug therapy; V86.99XA Unspecified occupant of other special all-terrain or other off-road motor vehicle injured in nontraffic accident, initial encounter; Y92.410 Unspecified street and highway as the place of occurrence of the external cause
CPT/HCPCS: 36415; 86920; 86922; 92950; 99285-25; J0171; J3490; J7120